=== PATIENT | male | born 2000 | race Caucasian/White ===

== ENCOUNTER 2024-05-11 00:06 | Emergency (ER) | payer OTHER ==
[~2024-05-11] VITALS: Ht 180.3 cm; Wt 107.4 kg
[2024-05-11] MEDS ORDERED: KETO10TAB PO (05:06)
[2024-05-11] MEDS ORDERED: METH-1165 PO (05:06)
[2024-05-11] MEDS: methocarbamoL 750 MG TAB PO ONE (05:20)
[2024-05-11] MEDS: KETOROLAC TROMETHAMINE 10 MG TAB PO ONE (05:20)
[2024-05-11 05:23] VITALS: BP 147/77; TEMP 96.9; O2SAT 100
== END 2024-05-11 05:25 | disposition home or self-care (01) ==
LOC: M ED 00:06
DX: S46.811A Strain of other muscles, fascia and tendons at shoulder and upper arm level, right arm, initial encounter (principal); X50.0XXA Overexertion from strenuous movement or load, initial encounter; G47.30 Sleep apnea, unspecified; F90.9 Attention-deficit hyperactivity disorder, unspecified type; Y92.9 Unspecified place or not applicable; Y93.89 Activity, other specified; Y99.1 Military activity; Z79.899 Other long term (current) drug therapy